=== PATIENT | male | born 1990 | race Caucasian/White ===

== ENCOUNTER 2024-10-01 20:59 | Emergency (ER) | payer BC, SELFPAY ==
--- OUTSIDE RECORDS SUMMARY | 2023-12-01 11:30 | XMS_ITS ---
Author Organization [facility] Address [address] [place] [phone] Care Team Providers Care Director Call Name Role Phone Analy Esquivel Primary Care Provider González Olvera Unavailable [phone] Allergies Allergen (clinical drug ingredient) Drug/Non Drug Allergy documented on EMR Reaction Allergy Type Onset Date Status Penicillin Unknown Drug Allergy Active tetracycline Tetracycline Unknown Drug Allergy A ctive REASON FOR VISIT physical for foster care Vital Signs Blood pressure systolic 120 mm Hg 12/01/19 24 Blood pressure diastolic 80 mm Hg 024 Heart Rate 79 /min 12/01/2023 Height 71.50 in 12/01/2023 Weight 293 lbs 12/01/2023 BMI 40.29 kg/m2 12/01/2023 Encounters Encounter Location Date Provider Diagnosis [facility] [address] [place] [id number] 12/01/2023 Analy Esquivel Screening for lipid disorders Z13.220 ; Encounter for administrative examinations Z02.9 ; Screening for diabetes mellitus Z13.1 ; Family history of hypertension Z82.49 and Family history of hyperlipidemia Z83.438 Assessments Encounter Date Diagnosis (ICD Code) Assessment Notes Treatment Notes Treatment Clinical Notes Section Notes 12/01/2023 Screening for lipid disorders (ICD-10 - Z13.220) Forms completed for foster parenting 12/01/2023 Encounter for administrative examinations (ICD-10 - Z02.9) 12/01/2023 Screening for diabetes mellitus (ICD-10 - Z13.1) 12/01/2023 Family history of hypertension (ICD-10 - Z82.49) 12/01/2023 Family history of hyperlipidemia (ICD-10 - Z83.438) Plan Of Treatment Treatment Notes Assessment Notes Screening for lipid disorders Forms comp leted for foster parenting Next Appt Details Follow Up: via phone to repo rt test results, Reason: Progress Notes * New GOLDSTEINDOB:1990 (34 yo M)Acc No.[id number]:12/01/2023 Physical Patient: New CAZARES Provider: Analy Esquivel M.D. :1990 A ge:33 Y S ex:Male Date:12/01/2023 Address:[address] [place] [address] [place] [id number] Subjective: * Chief Complaints: * 1 . Physical for foster care. 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 . He has a family history of diabetes, hypertension, and hyperlipidemia but has not had any screening. * ROS: D ERMATOLOGY: no R emilio. n o H katelyn. G ASTROENTEROLOGY: no N ausea. n o V omiting. n o D iarrhea.? U ROLOGY: no D ifficulty urinating. n o B lood in urine. * Medical History: P seudotumor cerebri 2002, low back pain, MRI lumbar spine 2011 (large disc protrusion). * Surgical History: i ngrown toenails . * Family History: F ather: alive. M other: alive, hypertension, hyperlipidemia. 1 sister(s) . . * Social History: C URRENT TOBACCO USE S moking Status: Patient does NOT smoke. C affeine: yes, frequency:. Past smoking status: no. Alcohol: no. * Medications: N one * Allergies: P enicillin, Tetracycline. Objective: * Vitals: W t:293, Temp:98.5, BP:120/80, HR:79, O2 Sat:98% on RA, Nurse:ANISHA, Ht: 71.50, BMI:40.29. * Examination: G eneral Examination: General Appearance: N AD. HEENT: u nremarkable. Oral cavity: n o lesions, mucosa moist and WNL, no erythema. Neck: s upple, no lymphadenopathy. Chest: n ormal shape and expansion. Heart: R SR. Lungs: c lear to auscultation. Neurologic Exam: I ntact, gait normal. Skin: n ormal, no rash. Extremities: n o leg edema. Assessment: * Assessment: 1. E ncounter for administrative examinations - Z02.9 (Primary) 2 . S creening for lipid disorders - Z13.220 3 . S creening for diabetes mellitus - Z13.1? 4. F amily history of hypertension - Z82.49 5 . F amily history of hyperlipidemia - Z83.438 Plan: * Treatment: * Procedure Codes: 9 4760 PULSE OX * Follow Up: v ia phone to report test results * Billing Information: * Visit Code: 02588 Preventive Care Est Pt 18-39. * Procedure Codes: 21394 PULSE OX. * Electronic signature of Analy Esquivel MD on 10/01/2024 at 09:06 PM EDT Sign off status: Pending * Provider: Analy Esquivel M.D. 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 He has a family his tory of diabetes, hypertension, and hyperlipidemia but has not had any screening. Examination Category Sub-Category Detail Notes Category Not es General Examination HEENT: unremarkable Heart: RSR Lungs: clear to auscultatio n Extremities: no leg edema General Appearance: NAD Skin: normal, no rash Neurologic Exam: Intact, gait normal Neck: supple, no lymphaden opathy Oral cavity: no lesions, mucosa m oist and WNL, no erythema Peripheral pulses: Chest: normal shape and exp ansion
--- NOTE | 2024-10-01 21:00 | ECG_ITS ---
APPROVED REPORT Exam: Resting ECG HR:77 bpm ECG Measurements Heart Rate 77 AXES AR 154 P 32 QRSd 96 QRS 71 QT 343 T 34 QTc 375 Conclusion SINUS RHYTHM NORMAL ECG UNCONFIRMED REPORT Electronically signed by : Farooq Bailey, 10/01/2024 23:20:56
[2024-10-01 21:01] VITALS: BP 121/68; PULSE 85; RESP 18; TEMP 36.9; O2SAT 97; BMI 38.6
--- NOTE | 2024-10-01 21:06 | XR_ITS ---
PROCEDURE INFORMATION: Exam: XR Chest Exam date and time: 10/01/2024 9:23 PM Age: 34 years old Clinical indication: Shortness of breath; Additional info: Short of breath TECHNIQUE: Imaging protocol: Radiologic exam of the chest. Views: 2 views. Total images: 2 COMPARISON: No relevant prior studies available. FINDINGS: Lungs: Calcified left basilar granuloma. No consolidation. No pulmonary vascular congestion or edema. Pleural spaces: Unremarkable. No pleural effusion. No pneumothorax. Heart/Mediastinum: Unremarkable. No cardiomegaly. No mediastinal widening or hilar enlargement. Bones/joints: Unremarkable. IMPRESSION: No radiographically acute cardiopulmonary process.
--- OUTSIDE RECORDS SUMMARY | 2024-10-01 21:06 | XMS_ITS | Clinical Summary ---
Author Organization [facility] Address [address] [place] [id number] Phone [email or web address] Care Team Providers Care Rental Clerk Tool And Equipment Name Role Phone Unavailable Primary Care Provider Unavailabl e Medications No known medications Active Problems Problem Noted Date Diagnosed Date Health examination of defined subpopulation 03/27 Overview (09/23/2017): Social History Tobacco Use Types Packs/Day Years Used Date Smoking Tobacco: Never Assessed Intimate Partner Violence Answer Date R ecorded Insults You Not on file 05/04/2021 Threatens You Not on file 05/04/2021 Screams at You Not on file 05/04/2021 Physically Hurt Not on file 05/04/2021 Intimate Partner Violence Score Not on file 05/04/2021 Stress Answer Date Recorded Stress in your Life Not on file 02/29/2024 Dealing with Stress 3 02/29/2024 Sex and Gender Information Value Date Recorded Sex Assigned at Not on file Legal Sex Male 7:36 AM CDT Gender Identity Not on file Sexual Orientation Not on file Last Filed Vital Signs Vital Sign Reading Time Taken Comments Blood Pressure 129/84 07/18/2015 12:05 PM CDT Pulse 102 10/26/2020 11:07 AM EDT Temperature 38.9 C (102 F) 10/26/2020 11:07 AM EDT Respiratory Rate - - Oxygen Saturation 96% 10/26/2020 11:07 AM EDT Inhaled Oxygen Concentration - - Weight 122 kg (270 lb) 07/18/2015 12:05 PM CDT Height 182.9 cm (6') 07/18/2015 12:05 PM CDT Body Mass Index 36.62 07/18/2015 12:05 PM CDT Plan of Treatment Health Maintenance Due Date Last Done Comments Dental Cleaning/Exam 1990 HIV Screening 1990 Hepatitis C Screening 1990 Annual Preventive Exam 2006 Hep B Infection Screening - Triple Screen 2006 Hepatitis B Immunization (1 of 3 - 19+ 3-dose series) 08/13/2007 Covid-19 Immunization (1 - 2 024-25 season) 2023 Influenza Immunization (Seas on Ended) 2024 Tetanus Diphtheria and Pertu ssis Immunization (2 - Td or Tdap) 12/29/2027 12/28/2017 HIB Immunization Aged Out No longer e ligible based on patient's age to complete this topic HPV Immunization Aged Out No longer e ligible based on patient's age to complete this topic Hepatitis A Immunization Aged Out No longer eligible based on patient's age to complete this topic Pneumococcal: Ped (0 to 5 Yr s) and At-Risk Member (6 to 64 Yrs) Aged Out No longer e ligible based on patient's age to complete this topic Polio Immunization Aged Out No longer eligible based on patient's age to complete this topic Varicella Immunization Aged Out No lo nger eligible based on patient's age to complete this topic Insurance OPT OUT NO COPAY NB
--- OUTSIDE RECORDS SUMMARY | 2024-10-01 21:07 | XMS_ITS | Patient Health Record ---
Author Organization [facility] Address [address] [facility] [address] [place] [phone] Care Team Providers Care Sr. Director Product Management Name Role Phone Analy Esquivel Primary Care Provider González Olvera Unavailable [phone] Allergies Allergen (clinical drug ingredient) Drug/Non Drug Allergy documented on EMR Reaction Allergy Type Onset Date Status Penicillin Unknown Drug Allergy Active tetracycline Tetracycline Unknown Drug Allergy A ctive Reason For Referral No Information Immunizations Vaccine Route Administration Date Status Comme nts Tetanus Tdap-Adacel (over 7yrs) Unknown 12/28/2017 Admi nistered Problems Problem Type SNOMED Code ICD Code Onset Dates Problem Status W/U Status Risk Notes Problem [id number] Lumbar disc disease (M51.9) Active confirmed Problem [id number] Acute right-sided low back pain with right-sided sciatica (M54.41) Active confirmed Vital Signs Heart Rate 79 /min 12/01/2023 Blood pressure diastolic 80 mm Hg 12/01/2023 Height 71.50 in 12/01/2023 Blood pressure systolic 120 mm Hg 12/01/2023 Weight 293 lbs 12/01/2023 BMI 40.29 kg/m2 12/01/2023 Encounters Encounter Location Date Provider Diagnosis [facility] [address] [facility] [address] [place] [phone] 12/01/2023 Analy Esquivel Screening for lipid disorders [...] hyperlipidemia (ICD-10 - Z83.438) Plan Of Treatment No Information Insurance Providers Payer Name Payer Address Payer Phone Subscriber Number Group Number Insured Name Patient Relationship to Insured Coverage Start Date Coverage End Date [employer]IAN [employer] [address] [place] [address] [id number] [place] Self - patient is the insured Medications Administered Medication Instructions Date of Administration Dosage Notes Depo- Medrol 40 mg/ml 12/04/2011 Depo- Medrol 40 mg/ml 03/21/2015 1.5 mL Depo- Medrol 40 mg/ml 03/21/2015 1 mL Depo- Medrol 40 mg/ml 02/04/2016 1 mL Depo- Medrol 40 mg/ml 03/31/2018 1.5 mL Dexamethasone 04/26/2019 1 mL Medical (General) History Medical History History ICD Code Pseudotumor cerebri 2003 low back pain, MRI lumbar spine 2011 (la rge disc protrusion) Surgical History Surgery Date(Month/Year) ingrown toenails
--- NOTE | 2024-10-01 21:10 | ED_ITS ---
<Statement entered by Naren Bailey MD - 10/01/24 23:17> I was consulted by the ADRIEN, and we discussed the complexity of the problems being addressed. I approved the treatment and management plan for this patient's care in the emergency department, thus performing a substantive portion of the medical decision making. Naren Bailey MD, MONTY, FACEP Discharge Plan Disposition Patient Disposition: Home, Self-Care Prescriptions Prescriptions: No Action cyclobenzaprine 10 MG Tablet 10 mg PO TID naproxen 500 MG Tablet 500 mg PO BID naproxen 500 MG tablet 500 mg PO BID Qty: 40 0RF methylprednisolone 4 MG tablets,dose pack 4 mg PO DAILY 6 Days Qty: 21 0RF Rx Instructions: Take as directed Referrals Follow up/Referrals: Sylvester Esquivel MD [Primary Care Provider, Medical] - See instructions Activity Restrictions/Add. Instructions Additional Instructions/Restrictions: Increase fluids and rest. See Dr. Esquivel within the next week for follow-up. If any worsening symptoms occur please return to the ED. Clinical Impressions Clinical Impression: Atypical chest pain Instructions Patient Instructions: DI for Atypical Chest Pain Print Language Print Language: [place] Discharge ED Provider: Naren Bailey HPI General Chief Complaint: Chest Pain Stated Complaint: Chest pain Time Seen by Provider: 10/01/24 21:02 History of Present Illness HPI narrative: This is a 34-year-old male who presents to the ED today for complaint of chest pain that feels tight and shortness of breath since 2:30 AM. Patient says this has been going on off and on all day. He says he feels like his heart rate is easily elevated by doing small activities. He feels like the tightness has been going on all day. No nausea or vomiting. No recent illness. Patient has no history of heart disease no hypertension, no shortness of breath in the past. He is on no medications. Patient family history only includes hypertension and diabetes. Related Data Home Medications ?Medication ?Instructions ?Recorded ?Confirmed cyclobenzaprine 10 mg tablet 10 mg PO TID BACK PAIN 07/25/17 naproxen 500 mg tablet 500 mg PO BID BACK PAIN 06/2707/25/17 Previous Rx's ?Medication ?Instructions ?Recorded methylprednisolone 4 mg tablets in 4 mg PO DAILY 6 day s ##21 07/25/17 a dose pack naproxen 500 mg tablet 500 mg PO BID #40 tabs 07/25 Allergies Allergy/AdvReac Type Severity Reaction Status Date / Time Penicillins Allergy Verified 07/25/17 14:14 Tetracyclines Allergy Verified 07/25/17 14:14 [facility] Disclaimer: The information contained in this section may have been updated after the patient was seen, as this information can be updated by other users. Social History Smoking Status: Unknown if ever smoked alcohol intake: never current occupational status: other Travel in the last 8 weeks?: None ROS Obtained: Yes Systems reviewed as appropriate & no additional complaints except as documented Constitutional Constitutional: Reports as per HPI Physical Exam General General appearance: alert Head Head exam: normocephalic Eye Eye exam: Present PERRL ENT ENT exam: Present mucous membranes moist Neck Neck exam: Present trachea midline Chest Chest inspection: Present symmetric chest wall rise Respiratory Respiratory exam: Present normal lung sounds bilaterally Cardiovascular Cardiovascular exam: Present regular rate, normal rhythm, normal heart sounds, +S1 and +S2 Abdominal Exam Abdominal exam: Present soft and normal bowel sounds Extremities Exam Extremities exam: Present normal inspection, full ROM and normal capillary refill Back Exam Back exam: Present full ROM Neurological Exam Neurological exam: Present alert, oriented X3 and normal gait Psychiatric Psychiatric exam: Present normal affect and normal mood Skin Skin exam: Present warm and dry HEART Score HEART Score HEART Score assessment performed?: Yes History (anamnesis): Slightly suspicious ECG: Normal Age: <45 years Risk factors: No known risk factors Troponin: </= normal limit HEART Score: 0 Critical Care Critical Care Time Critical Care Time: No Medical Decision Making Chapito Inquiry Pt receiving controlled substance: No Chapito was queried for this patient: No Vital Signs Vital Signs: 10/01/24 21:01 10/01/24 21:30 Temperature 98.4 F Temperature Source Oral Pulse Rate 92 H Pulse Rate [Left] 85 Respiratory Rate 18 Blood Pressure [Right Arm] 121/68 Blood Pressure Mean [Right Arm] 85 02 Sat by Pulse Oximetry 97 91 L Oxygen Delivery Method Room Air Lab Data Labs: Lab Results 10/01/24 21:14: WBC 5.9, RBC 4.64, Hgb 14.2, Hct 40.0 L, MCV 86.2, MCH 30.6, M CHC 35.5 H, RDW 12.2, Plt Count 335, MPV 9.4, Neut % (Auto) 56.1, Lymph % (Auto) 28.6, Chester % (Auto) 12.4 H, Eos % (Auto) 2.2, Baso % (Auto) 0.5, Neut # (Auto) 3.3, Lymph # (Auto) 1.7, Chester # (Auto) 0.7, Eos # (Auto) 0.1, Baso # (Auto) 0.0, D-Dimer 0.32, Sodium 137, Potassium 3.9, Chloride 107, Carbon Dioxide 27, Anion Gap 6.9, BUN 13, Creatinine 0.90, Estimated Creat Clear 207, Estimated GFR 95, Est GFR ( Amer) 116, Glucose 96, Calcium 9.0, Magnesium 2.0, Total Bilirubin 0.5, AST 28, ALT 22, Alkaline Phosphatase 70, Troponin I < 0.01, Total Protein 7.1, Albumin 4.3, Globulin 2.8, Albumin/Globulin Ratio 1.5, Lipase 102 10/01/24 21:14 10/01/24 21:14 Response Orders (Tests/Meds): ED MEDICATIONS Discontinued Medications Generic Name Dose Route Start Last Admin Trade Name Freq PRN Reason Stop Dose Admin Morphine Sulfate 4 mg 10/01/24 21:06 10/01/24 21:24 Morphine 4mg/Ml Syringe IV 10/01/24 21:07 4 mg ONCE ONE Administration Ondansetron HCl 4 mg 10/01/24 21:06 10/01/24 21:24 Ondansetron 4mg/2ml Vial IV 10/01/24 21:07 4 mg ONCE ONE Administration ORDERS Category Date Time Status Chest XR 2 view (NOT portable) [XR chest 2V] Stat Exams 10/01/24 21:06 Taken CBC [Complete Blood Count Auto Diff] Stat Lab 10/01/24 21:14 Completed Comprehensive Metabolic Panel Stat Lab 10/01/24 21:14 Completed D-Dimer Stat Lab 10/01/24 21:14 Completed HIV Combo Stat Lab 10/01/24 21:14 Received Hepatitis C Ab Qual. W/ RFX Stat Lab 10/01/24 21:14 Received Lipase Stat Lab 10/01/24 21:14 Completed Magnesium Stat Lab 10/01/24 21:14 Completed Mini Respiratory Panel Stat Lab 10/01/24 21:07 Ordered Trop I [Troponin I] Stat Lab 10/01/24 21:14 Completed Troponin I Q3H Lab 10/02/24 00:15 Ordered Troponin I Q3H Lab 10/02/24 03:15 Ordered MDM Narrative Medical Decision Narrative: patient is a 34-year-old male presenting to the emergency department for evaluation of chest pain and shortness of breath that started at 2:30 AM. Patient is hemodynamically stable and nontoxic-appearing upon arrival, afebrile. Differential diagnosis includes IN, NSTEMI, CAD, anxiety, GERD, among others. Workup will be conducted with hematologic labs, specific imaging. Initial inventions include analgesics, antibiotics. Initial workup reviewed by me hematologic labs are remarkable for nothing acute.. Imaging informally interpreted by me and remarkable for no acute findings. Formal imaging not read at this time. Upon repeat evaluation patient's pain is improved. Patient will follow-up with Dr. Esquivel for further management and treatment if needed. Patient safe for discharge home
[2024-10-01 21:20] LABS: Basophils % 0.5 % (0.1-2.0); Eosinophils # 0.1 Kmm3 (0.0-0.4); Eosinophils % 2.2 % (0.1-12.0); Hemoglobin 14.2 g/dL (14.1-18.0); Immature Granulocytes # 0.01 10^3uL; Immature Granulocytes % 0.2 %; Lymphocytes # 1.7 K/mm3 (0.7-4.5); Lymphocytes % 28.6 % (10-50); Mean Corpuscular HGB Conc 35.5 g/dL (31.8-35.4); Mean Corpuscular Hemoglobin 30.6 pg (27.0-31.2); Mean Corpuscular Volume 86.2 fl (80-94); Mean Platelet Volume 9.4 fl (7.4-10.4); Monocytes # 0.7 K/mm3 (0.1-1.0); Monocytes % 12.4 % (1.7-9.3); Neutrophils # 3.3 K/mm3 (1.8-7.8); Neutrophils % 56.1 % (37.0-80.0); Nucleated Red Blood Cells # 0 10^3/uL; Nucleated Red Blood Cells % 0 %; Platelet Count 335 K/mm3 (142-424); Red Blood Count 4.64 M/mm3 (4.60-6.20); Red Cell Distribution Width 12.2 % (11.5-17.5); Red Cell Distribution Width-SD 38.5 fL; White Blood Count 5.9 K/mm3 (4.8-10.8)
[2024-10-01] MEDS: MORPHINE 4MG/ML SYRINGE 4 MG IV (21:24)
[2024-10-01] MEDS: ONDANSETRON 4MG/2ML VIAL 4 MG IV (21:24)
[2024-10-01 21:30] VITALS: PULSE 92; O2SAT 91
--- NOTE | 2024-10-01 21:33 | PC.NURSE ---
pt taken to radiology at this time, ambulatory with slow steady gait.
[2024-10-01 21:35] LABS: Alanine Aminotransferase 22 U/L (12-78); Albumin Level 4.3 g/dl (3.5-5.0); Albumin/Globulin Ratio 1.5 (1.1-1.8); Alkaline Phosphatase 70 U/L (38-126); Anion Gap 6.9 mEq/L (5-15); Aspartate Amino Transferase 28 U/L (17-59); Bilirubin,Total 0.5 mg/dl (0.2-1.3); Blood Urea Nitrogen 13 mg/dl (9-20); Carbon Dioxide 27 mmol/L (22.0-30.0); Chloride 107 mmol/L (98-107); Creatinine Clearance Estimated 207 mL/min (50-200); Estimated Glomerular Filt Rate 95 ml/min (>60); GFR (African American) 116 ML/MIN (>60); Globulin 2.8 g/dL (1.3-3.2); Glucose 96 mg/dl (74-100); Lipase 102 U/L (23-300); Potassium 3.9 mmoL/L (3.5-5.1); Sodium 137 mmol/L (136-145); Total Protein,Serum 7.1 g/dl (6.3-8.2)
[2024-10-01 21:38] LABS: D-Dimer 0.32 ug/mL (0.0-0.5)
[2024-10-01 21:50] LABS: Troponin I < 0.01 ng/ml (0.00-0.034)
[2024-10-01 22:24] LABS: HIV Combo NEGATIVE (Negative)
[2024-10-01 22:25] VITALS: BP 113/71; PULSE 73; RESP 18; TEMP 36.8; O2SAT 95
[2024-10-01 22:32] LABS: Hepatitis C Ab Qual. W/ RFX NEGATIVE (Negative)
== END 2024-10-01 22:29 | disposition home or self-care (01) ==
PROVIDERS: Nurse Practitioner; Emergency Provider Student in an Organized Health Care Education/Training Program; PCP Family Medicine
DX: R07.89 Other chest pain (principal); R06.02 Shortness of breath; Z11.59 Encounter for screening for other viral diseases; Z11.4 Encounter for screening for human immunodeficiency virus [HIV]
CPT/HCPCS: 71046; 80053; 80074; 83690; 83735; 84484; 85025; 85378; 87389; 93005; 96374; 96375; 99285; J2270; J2405